=== PATIENT | female | born 1990 | race Caucasian/White ===

== ENCOUNTER 2022-12-24 07:18 | Day surgery (SDC) | payer BC, OTHER ==
[2022-12-24 09:55] VITALS: BP 128/89; TEMP 97.4
[2022-12-24] MEDS ORDERED: Iopamidol-M 300 61% 15 ML VIAL ONE (10:14)
== END 2022-12-24 10:40 | disposition home or self-care (01) ==
LOC: CJX 07:18 → EDSTATUS 08:00 → CJX 10:40
PROVIDERS: ATTEND Neurological Surgery
DX: M54.12 Radiculopathy, cervical region (principal); M54.50 Low back pain, unspecified
CPT/HCPCS: 62305; 72050; 72126; 72132; Q9967